=== PATIENT | female | born 1960 | race Caucasian/White ===

== ENCOUNTER 2016-07-18 14:13 | Day surgery (SDC) | payer BC ==
[~2016-07-18] VITALS: Ht 162.6 cm; Wt 79.6 kg
[~2016-07-18 14:13] MED LIST: GLIP-95 PO; HYDR-3498 PO; LISI-313 PO; MTF1000T PO; SIMV10TA6 PO
[2016-07-18] MEDS ORDERED: MELO7.5O PO (14:37)
[2016-07-18 14:48] VITALS: Ht 162.6 cm; Wt 79.6 kg
[2016-07-18 15:11] VITALS: BP 111/70; PULSE 86; RESP 16
[2016-07-18] MEDS ORDERED: LIDOCAINE 2% (SDV) 5 ML INJ ONE (15:28)
[2016-07-18] MEDS ORDERED: PROPOFOL 60 ML ONE (15:28)
--- NOTE | 2016-07-18 16:39 | GILP ---
DATE OF PROCEDURE: 07/18/2016 NAME OF PROCEDURES: 1. Colonoscopy. 2. Colostomy. 3. Flexible sigmoidoscopy through the anus. INDICATION FOR THE PROCEDURE: Ms. Sherrie Prado is a 56-year-old female patient who had accident al perforation of the colon during hysterectomy. The patient had surgery done and she had a colosto my. They reversal of colostomy was scheduled. The patient has a family history of colon cancer. She never had a screening colonoscopy, so the patient was scheduled for screening colonoscopy before e colon surgery. The procedure and possible complications are well explained to the patient. She understood and conse nted to the procedure. DESCRIPTION OF PROCEDURE: Under the influence of anesthesia, the pediatric upper endoscope was care fully inserted through the colostomy because the stoma was very tight. The scope was advanced all e way to the cecum. FINDINGS: The mucosa was normal. No colon neoplasm was identified. Then, the upper endoscope was carefully inserted into the rectum and it was advanced into the rectal pouch. The patient had residual stool in the rectal pouch, making the exam somewhat inadequate. She tolerated the procedures very well and there was no complication from the procedures. At the en d of the procedures, she was awake with stable vital signs and she was discharged home to the care o f her family. IMPRESSION: 1. Normal colonoscopy to cecum. 2. Colostomy. 3. Residual stool in the rectal pouch. PLAN: 1. May go ahead with the revision of the colostomy. 2. Next screening colonoscopy in 10 years. Dictated By: NICK READ/ТАТЬЯНА Conf#: [id number] DID#: [id number] CC: DEWAYNE TOBAR MD;*EndCC*
[2016-07-18 16:49] VITALS: BP 108/69; PULSE 74
== END 2016-07-19 12:00 | disposition home or self-care (01) ==
LOC: GIL 14:13
PROVIDERS: ATTEND Internal Medicine Gastroenterology
DX: Z12.11 Encounter for screening for malignant neoplasm of colon (principal); E11.9 Type 2 diabetes mellitus without complications; I10 Essential (primary) hypertension; E78.5 Hyperlipidemia, unspecified
CPT/HCPCS: 82962

== ENCOUNTER 2016-07-20 11:53 | Inpatient (IN) | payer BC ==
[2016-07-19 15:05] VITALS: BMI 23.8
[~2016-07-20] VITALS: Ht 164.5 cm; Wt 79.1 kg
[2016-07-20] VITALS (23 sets, daily range): BP systolic 115–159; BP diastolic 65–87; PULSE 72–96; RESP 12–19; Ht 164.5 cm; Wt 79.1 kg
[~2016-07-20 11:53] MED LIST changes: +EPHEDrine SULFATE 50 MG/5 ML SYG ONE; -HYDR-3498 PO; +MELO7.5O PO; +NALOXONE (0.4 MG/ML) INJ ONE; +ROCURONIUM 50 MG INJ ONE
[2016-07-20] MEDS ORDERED: metroNIDAZOLE 500 MG/NS (PMX) 100 ML IVPB ONE (12:30)
[2016-07-20] MEDS ORDERED: CIPROFLOXACIN 400MG/D5W 200 ML IVPB ONE (12:30)
[2016-07-20 13:32] LABS: ADD SCAN DIFF NO
[2016-07-20 13:40] LABS: BASOPHILS % 0.5 % (0.0-2.0); EOSINOPHILS # 0.1 10^3/ul (0.0-0.5); EOSINOPHILS % 2.1 % (0.0-7.0); HEMATOCRIT 41.2 % (37.0-47.0); HEMOGLOBIN 13.9 g/dl (12.0-16.0); INR 0.93; LYMPHOCYTES # 1.4 10^3/ul (0.8-2.9); LYMPHOCYTES % 33.3 % (15.0-51.0); MEAN CORPUSCULAR HGB CONC 33.7 g/dl (32.0-37.0); MEAN CORPUSCULAR VOLUME 83.1 fl (82.0-101.0); MEAN PLATELET VOLUME 9.4 fl (7.4-10.4); MONOCYTE # 0.3 10^3/ul (0.3-0.9); MONOCYTES % 5.8 % (0.0-11.0); NEUTROPHIL # 2.5 10^3/ul (1.6-7.5); NEUTROPHILS % 58.1 % (39.0-77.0); PARTIAL THROMBOPLASTIN TIME 29.7 Sec (25.0-35.0); PLATELET COUNT 173 10^3/UL (140-415); PROTIME 12.5 Sec (12.2-14.2); RED BLOOD COUNT 4.96 10^6/ul (4.20-5.40); RED CELL DISTRIBUTION WIDTH 14.6 % (11.5-14.5); WHITE BLOOD COUNT 4.3 10^3/ul (4.8-10.8)
[2016-07-20 13:43] LABS: POTASSIUM 4.1 mmol/L (3.5-5.1)
[2016-07-20 13:45] LABS: CHOL/HDL RATIO 2.9 RATIO
[2016-07-20 13:50] LABS: CALCIUM 9.9 mg/dl (8.4-10.2); CREATININE 0.75 mg/dl (0.44-1.00)
[2016-07-20] MEDS ORDERED: LIDOCAINE 100 MG SYRINGE ONE (14:09)
[2016-07-20] MEDS ORDERED: PROPOFOL 20 ML ONE (14:09)
[2016-07-20] MEDS ORDERED: DEXAMETHASONE 4 MG/ML 1 ML INJ ONE (14:09)
[2016-07-20] MEDS ORDERED: ONDANSETRON 4 MG INJ ONE (14:09)
[2016-07-20] MEDS ORDERED: GLYCOPYRROLATE 1 MG INJ ONE ×2 (14:11→17:30)
[2016-07-20] MEDS ORDERED: NEOSTIGMINE 3 MG/3 ML SYRINGE ONE ×2 (14:11→17:30)
[2016-07-20] MEDS ORDERED: EPHEDrine SULFATE 50 MG/5 ML SYG IV PRN (14:30)
[2016-07-20] MEDS ORDERED: LABETALOL HCL 20MG INJ IV PRN (14:30)
[2016-07-20] MEDS ORDERED: DIPHENHYDRAMINE 50 MG INJ IV PRN (14:30)
[2016-07-20] MEDS ORDERED: HYDROmorphONE (0.2 MG/ML) 10ML SYG IV PRN ×3 (14:30)
[2016-07-20] MEDS ORDERED: FENTAnyl 50 MCG/ML VIAL IV PRN ×2 (14:30)
[2016-07-20] MEDS ORDERED: ONDANSETRON 4 MG INJ IV PRN ×2 (14:30→20:30)
[2016-07-20] MEDS ORDERED: MIDAZOLAM 1 MG/ML 2 ML INJ IV PRN (14:30)
[2016-07-20] MEDS ORDERED: ATROPINE 1 MG/10 ML SYRINGE IV PRN (14:30)
[2016-07-20] MEDS ORDERED: OXYCODONE/ACETAMINOPHEN (5/325) TAB PO PRN ×2 (14:30)
[2016-07-20] MEDS ORDERED: morphine (1 MG/ML) 10ML SYRINGE IV PRN ×3 (14:30)
[2016-07-20] MEDS ORDERED: hydrALAzine 20 MG INJ IV PRN (14:30)
[2016-07-20] MEDS ORDERED: MEPERIDINE 25 MG INJ IV PRN (14:30)
[2016-07-20] MEDS ORDERED: LIDOCAINE 1% (STERILE-PAK) 30 ML INJ ONE (14:34)
[2016-07-20] MEDS ORDERED: BUPIVACAINE 0.5%/EPI (SDV) 30 ML INJ ONE (14:34)
[2016-07-20] MEDS ORDERED: HYDROmorphONE 2 MG/ML SYG ONE (17:31)
[2016-07-20 20:04] LABS: ADD UMIC YES; URINE BILIRUBIN (Dip) NEGATIVE (NEGATIVE); URINE BLOOD (Dip) 3+ (NEGATIVE); URINE COLOR YELLOW (YELLOW); URINE GLUCOSE (Dip) NEGATIVE (NEGATIVE); URINE KETONES (Dip) 40 (NEGATIVE); URINE LEUKOCYTE ESTERASE (Dip) NEGATIVE (NEGATIVE); URINE NITRITE (Dip) NEGATIVE (NEGATIVE); URINE TOTAL PROTEIN (Dip) NEGATIVE (NEGATIVE); URINE UROBILINOGEN (Dip) 0.2 E.U./dL (0.1-1.0)
[2016-07-20 20:20] LABS: BACTERIA,URINE RARE; SQUAMOUS EPITHELIAL CELL,UR FEW
[2016-07-20] MEDS ORDERED: HYDROmorphONE 1 MG/ML SYG IV PRN (20:30)
--- NOTE | 2016-07-20 20:58 | OPR ---
Date/Time of Note Date/Time of Note DATE: 07/20/16 TIME: 20:34 Operative Report Procedure Date: Jul 20, 2016 Preoperative Diagnosis 1. Colostomy state 2. History of colorectal perforation secondary to complicated vaginal hysterectomy 3. BMI 29 Postoperative Diagnosis 1. Colostomy state 2. History of colorectal perforation secondary to complicated vaginal hysterectomy 3. BMI 29 Operation Performed 1. Laparoscopic colostomy reversal/takedown 2. Laparoscopic splenic mobilization 3. Rigid sigmoidoscopy 4. Implantation of biologic over anastomosis to improve healing and decrease adhesions 5. Local anesthetic injection, [id number] 6. Laparoscopic bilateral transversus abdominis plane block Surgeon: DEWAYNE TOBAR MD Anesthesia: general (Plus local plus regional) Anesthesiologist: JJ LAMB MD Estimated Blood Loss: 10 - 50 ml's Specimens 1. Left anastomotic rings 2. Distal colon/colostomy edge Tubes/Drains Quarter inch Beto Complications: None Pt Condition Post Procedure: stable Disposition: PACU Indications 56-year-old female with multiple comorbidities who had a vaginal hysterectomy last year which was complicated with colorectal perforation and fistulization and pelvic abscess. She was taken to surgery for laparoscopic exploration colostomy washout and repair of the vaginal cuff. She is now here for colostomy reversal. She had colonoscopy by Dr. Ruiz without any abnormal findings. Risks include but are not limited to bleeding, infection, abscess, seroma, leak , damage to intestines or any intra-abdominal/intrapelvic structures, hernia formation, chronic pain, need for re-operations or further surgeries, CA, stroke , PE, DVT, pneumonia, organ failures, or even . Procedure Description Patient was brought into the operating room, placed supine on the operating table, SCDs were placed, right arm was tucked, all pressure points were well- padded, preoperative antibiotics administered, and after induction of anesthesia , patient was placed in the lithotomy. More was inserted. Patient was then prepped and draped in usual sterile fashion, and timeout was performed. Incision was made in the right upper quadrant, and using an Optiview port and 5 mm 0 scope abdomen was safely entered and insufflated to 15 mmHg with CO2. Laparoscopy was performed and no injuries were identified. There was adhesions of the small bowel to colostomy left lower quadrant. There is some scar adhesions to the abdominal wall from the small bowel. Under direct visualization another 5 mm port was placed in the right lower quadrant a 12 mm port was placed in the right lower lateral quadrant. Patient was placed in Trendelenburg and left side up. Pelvis was investigated. There was some small bowel adhesions to the pelvic wall. Those were taken down sharply without any injury. The adhesions of small bowel to the colostomy were also taken down. Rigid sigmoidoscopy was performed and the rectal stump was found to be short. There was few stool hard balls and there which were removed manually. The vaginal cuff and the bladder were easily off of the rectal stump. The rectal stump did not feel thickened. A colostomy edge was cut away from the skin using electrocautery and with gentle dissection the distal colon was from the subcutaneous tissue and then the fascia and peritoneum circumferentially preserving the entire colon. Hemostasis was obtained. The 3 cm distal end of the colon was thickened and not too healthy for stapling. At this point automatic pursestring suture device was used on the healthy distal colon and then unhealthy distal colon was transected and sent to pathology. EEA 29 anvil was placed into the distal colon and secured with the previously placed pursestring suture. Care was taken to put back the EEA anvil and the distal colon back into the abdomen under direct visualization. Lance GelPort was applied at the site to preserve insufflation. At this point there are proximal colon was not sufficiently reaching the rectal stump in the pelvis. Decision was made to proceed with splenic mobilization. Using sharp dissection and energy device I was able to mobilize the proximal descending colon further from the abdominal wall and the spleen. The omentum was taken off the splenic flexure and the splenic flexure was further mobilized inferiorly. After full mobilization of the splenic flexure we were able to obtain sufficient length for the anastomosis without any tension. EEA stapler was placed through the rectum into the rectal stump under direct visualization. The needle was opened through the rectal stump and the anvil was attached to the needle and full circular stapled anastomosis was created. After removal of the EEA full doughnuts 2 were identified. Proximal colon was clamped and using a rigid sigmoidoscope and air was insufflated into the rectum with distention of the anastomotic site under saline in the pelvis without any air bubbles leaking. Rigid sigmoidoscopy was performed up to 15 cm with healthy stapled anastomosis without any active bleeding. Fluid was suctioned out. To reinforce the stapled anastomosis, improve healing, and decrease adhesions, 10 x 15 cm 3 layer ACell, xenograft biologic tissue, was implanted on top of the anastomosis in the pelvis. Small bowel was ran from terminal ileum to augment of Treitz without any twisting or further scarring. The bowel was laid flat in the abdomen and pelvis. 12 m port site fascia was closed with Endo Close and 0 Vicryl in a figure-of- eight manner. There was complete hemostasis. Ports and CO2 were removed under direct visualization. Wounds were thoroughly irrigated and skin was closed with 4-0 Monocryl subcuticular fashion. Dermabond was applied. The colostomy site wound was closed in multiple layers. Initially the peritoneum was closed with 2-0 Vicryl in a running fashion. Fascial defect was closed with interrupted #1 Vicryls in a agyhma-ne-xoxjh manner. Subcutaneous tissue was closed in multiple layers with interrupted 2-0 Vicryl suture. There was irrigation with saline and Betadine between each closing layer. Quarter inch Beto drain was placed above the fascia and below the subcutaneous tissue and the edges secured to the skin surface using 2-0 nylon. Skin was stapled loosely and then 4 x 4 and tape were applied to the surface of this wound. Abdomen was reinsufflated with CO2. Partial mobilization of the splenic flexure was performed to allow sufficient colon to reach into the pelvis. This was done by mobilizing the left colon off of the spleen. Jygc-iu-mheb staple anastomosis was created between the left colon and the upper rectum. This was done by placing 2-0 silk sutures and interrupted posteriorly followed by enterotomies in both segments followed by 60 blue load staple anastomosis that was created. The open end was closed with another 60 blue load stapler. There was enough anastomosis to allow easy passage of stool. The suture line was reinforced with 2-0 silk Lembert sutures in a running fashion. The mesenteric defect was large enough and decision was made not to close it. There was enough fat around the colon to cover this anastomosis for reinforcement. The omentum was eventually pulled over the anastomosis to further secure it as well. The colon was not twisted. There was complete hemostasis. All counts were correct and the end of the operation 2. Patient was extubated and transferred to recovery room in stable condition. Copies To: CC: ELLIS MCNEILL MD; NICK RUIZ MD; TRAVIS SCHNEIDER (HIEU) DEWAYNE TRAN MD, MD 16, 2017 20:55
[2016-07-20] MEDS ORDERED: D5W-0.45 NACL + KCL 20 MEQ 1,000 ML IV SCH (21:00)
[2016-07-20] MEDS ORDERED: DEXTROSE 50% 50 ML SYRINGE IV PRN ×2 (21:00)
[2016-07-20] MEDS ORDERED: GLUCOSE GEL 15 GRAM TUBE BUCCAL PRN (21:00)
[2016-07-20] MEDS ORDERED: GLUCOSE GEL 15 GRAM TUBE PO PRN ×2 (21:00)
[2016-07-20] MEDS ORDERED: GLUCAGON 1 MG INJ IM PRN (21:00)
[2016-07-20] MEDS: CIPROFLOXACIN 400MG/D5W 200 ML IVPB SCH (21:26)
[2016-07-20] MEDS: metroNIDAZOLE 500 MG/NS (PMX) 100 ML IVPB SCH (21:27)
[2016-07-20] MEDS: INSULIN ASPART [NOVOLOG] 3 ML PEN SC SCH (21:30)
[2016-07-20] MEDS: HYDROCODONE/APAP (5/325) TAB PO PRN (23:41)
[2016-07-21] MEDS: ACCU-CHEK XX SCH (02:00)
[2016-07-21 04:56] LABS: ADD SCAN DIFF NO
[2016-07-21 05:01] LABS: BASOPHILS % 0.1 % (0.0-2.0); HEMATOCRIT 37.1 % (37.0-47.0); HEMOGLOBIN 12.2 g/dl (12.0-16.0); LYMPHOCYTES # 0.7 10^3/ul (0.8-2.9); LYMPHOCYTES % 10.4 % (15.0-51.0); MEAN CORPUSCULAR HEMOGLOBIN 27.4 pg (29.0-33.0); MEAN CORPUSCULAR HGB CONC 32.9 g/dl (32.0-37.0); MEAN CORPUSCULAR VOLUME 83.2 fl (82.0-101.0); MEAN PLATELET VOLUME 9.9 fl (7.4-10.4); MONOCYTE # 0.4 10^3/ul (0.3-0.9); MONOCYTES % 5.3 % (0.0-11.0); NEUTROPHIL # 5.7 10^3/ul (1.6-7.5); NEUTROPHILS % 84.1 % (39.0-77.0); PLATELET COUNT 124 10^3/UL (140-415); RED BLOOD COUNT 4.46 10^6/ul (4.20-5.40); WHITE BLOOD COUNT 6.7 10^3/ul (4.8-10.8)
[2016-07-21 05:15] LABS: ALBUMIN 3.3 g/dl (3.3-4.9)
[2016-07-21 05:16] LABS: POTASSIUM 5.2 mmol/L (3.5-5.1)
[2016-07-21 05:18] LABS: ALBUMIN/GLOBULIN RATIO 1.5; BILIRUBIN,INDIRECT 0.4 mg/dl (0-1.1); BILIRUBIN,TOTAL 0.4 mg/dl (0.2-1.3); CREATININE 0.76 mg/dl (0.44-1.00); TOTAL PROTEIN 5.5 g/dl (6.1-8.1)
[2016-07-21 05:19] LABS: CALCIUM 8.7 mg/dl (8.4-10.2)
[2016-07-21] MEDS: PANTOPRAZOLE 40 MG INJ IV SCH (05:29)
[2016-07-21] MEDS: metroNIDAZOLE 500 MG/NS (PMX) 100 ML IVPB SCH ×2 (05:29→13:06)
[2016-07-21] MEDS: ENOXAPARIN 40 MG/0.4 ML SYG SC SCH (06:40)
[2016-07-21] MEDS: HYDROCODONE/APAP (5/325) TAB PO PRN ×3 (06:41→20:37)
[2016-07-21 08:27] VITALS: BP 121/65; RESP 18
[2016-07-21] MEDS: CIPROFLOXACIN 400MG/D5W 200 ML IVPB SCH (08:50)
[2016-07-21] MEDS: INSULIN ASPART [NOVOLOG] 3 ML PEN SC SCH ×3 (08:55→20:39)
[2016-07-21] MEDS: SOD CHLORIDE 0.45% 1,000 ML IV SCH ×2 (10:24→23:42)
[2016-07-21 12:31] LABS: ADD UMIC YES; URINE BILIRUBIN (Dip) NEGATIVE (NEGATIVE); URINE BLOOD (Dip) 3+ (NEGATIVE); URINE COLOR LT. YELLOW (YELLOW); URINE KETONES (Dip) NEGATIVE (NEGATIVE); URINE LEUKOCYTE ESTERASE (Dip) NEGATIVE (NEGATIVE); URINE NITRITE (Dip) NEGATIVE (NEGATIVE); URINE TOTAL PROTEIN (Dip) NEGATIVE (NEGATIVE); URINE UROBILINOGEN (Dip) 0.2 E.U./dL (0.1-1.0)
[2016-07-21 12:54] LABS: BACTERIA,URINE FEW
[2016-07-21 14:00] VITALS: BP 128/72; PULSE 78; RESP 20
--- NOTE | 2016-07-21 14:05 | HP ---
DATE OF ADMISSION: 07/20/2016 HISTORY OF PRESENT ILLNESS: The patient is a 56-year-old very pleasant female known to me from prev ious admission. The patient with history of diabetes, hypertension, hyperlipidemia. The patient hill d a vaginal hysterectomy last year with complicated colorectal perforation and fistulization and pel israel abscess. The patient underwent laparoscopic exploration of colostomy, washout and repair of the vaginal cuff. The patient also with a history of sepsis and completed treatment with antibiotics f rom previous admission. The patient was followed by Dr. Bartlett, general surgery, and patient was b rought to the hospital and underwent colostomy reversal. The patient also underwent colonoscopy wit h Dr. Bear without any abnormal findings. Postoperatively, the patient experienced some signific ant pain and was admitted for further evaluation and management. The patient also had some elevated sugars. PAST MEDICAL HISTORY: As per HPI. PAST SURGICAL HISTORY: The patient is status post many years ago, status post laparoscopi c hysterectomy and status post laparoscopic exploration, colostomy with washout and repair or vagina l cuff. FAMILY HISTORY: Noncontributory. SOCIAL HISTORY: The patient lives at home with her family. The patient denies any alcohol use, den ies any illicit drug use, denies any tobacco use. ALLERGIES: THE PATIENT IS ALLERGIC TO: 1. ERYTHROMYCIN. 2. BACTRIM. 3. . HOME MEDICATIONS: Include: 1. Glipizide. 2. Metformin. 3. Lisinopril. 4. Meloxicam. 5. Simvastatin. REVIEW OF SYSTEMS: A 12-point review of systems is negative unless what mentioned in the HPI. PHYSICAL ASSESSMENT: GENERAL: Well-developed, well-nourished female who is awake, alert. VITAL SIGNS: Temperature is 98.2, pulse is 71, blood pressure 121/65, respiratory rate 18, oxygen s aturation 99% on 2 liters nasal cannula. HEENT: Head is atraumatic, normocephalic. Pupils equal, round, reactive to light and accommodation . Oral mucosa is pink and moist. NECK: Supple, no cervical lymphadenopathy, no thyromegaly. CHEST: Lungs clear bilaterally. There is no rhonchi, wheezes, rales noted. CARDIOVASCULAR: Normal S1, S2. No murmurs, gallops, clicks, rubs noted. ABDOMEN: Status post surgery. Bowel sounds hypoactive. EXTREMITIES: There is no edema, clubbing, cyanosis. Pulses equal bilaterally, 2+. SKIN: There is no rash, petechiae noted. NEUROLOGIC: The patient is awake, alert and oriented x4. No focal deficits noted. Motor strength 5/5 in all extremities. LABORATORY DATA: On admission, CBC: White blood cells 4.3, hemoglobin 13.9, hematocrit 41.2, plate lets 173. Chemistry: Sodium is 142, potassium 4.1, chloride 103, carbon dioxide 24, anion gap 19, BUN is 18, creatinine 0.75, glucose 98, calcium 9.9. ASSESSMENT AND PLAN: 1. Status post laparoscopic colostomy reversal. 2. Diabetes mellitus type 2. We are going to continue patient's home medications. Continue NovoLo g per algorithm sliding scale. 3. Hypertension. Continue lisinopril. Continue hydralazine p.r.n. for systolic blood pressure abo ve 170. 4. Hyperlipidemia. We will resume patient's statin when patient is able to take p.o. 5. Status post laparoscopic hysterectomy, and status post laparoscopic anterior resection, colostom y and drainage of abscess and repair of pelvic floor and vaginal cuff in 03/2016. We will advance d iet per surgical recommendations. Continue incentive spirometer q.1 hour while patient is awake. C ontinue postoperative antibiotics. Continue [place] and Dilaudid p.r.n. for pain and Zofran p.r.n. fo r nausea. Continue Lovenox for deep venous thrombosis prophylaxis and Protonix for peptic ulcer dis ease prophylaxis. Further recommendations based on clinical course. Plan of care discussed with Dr. Mcneill. Dictated By: MANISHA SAGASTUME TYPESETTER PERFORATOR OPERATOR for ELLIS MCNEILL MD SR/NTS Conf#: [id number] DID#: [id number]
[2016-07-21] MEDS: metFORMIN 500 MG TAB PO SCH (18:00)
[2016-07-21] MEDS: glipiZIDE 10 MG TAB PO SCH (18:00)
[2016-07-21 19:00] VITALS: BP 129/63; RESP 18
--- NOTE | 2016-07-21 19:46 | PN ---
Date/Time of Note Date/Time of Note DATE: 07/21/16 TIME: 19:42 Assessment/Plan Lines/Catheters IV Catheter Type (from Nrs): Peripheral IV More in Place (from Nrs): Yes Assessment/Plan Chief Complaint/Hosp Course 1. s/p colostomy reversal 07/20/16. Paralytic ileus. -Ambulate -Chew gum -On clear liquids. 2. BMI 29 -Encourage eventual nutritional optimization -Encourage exercise 3. Hypertension -Diet and medication optimization -Eventual weight optimization encouraged 4. Hyperlipidemia -Diet and medication optimization -Eventual weight optimization encouraged 5. Diabetes mellitus -Diet and medication optimization -Eventual weight optimization encouraged 6. Hyperkalemia -Correct per primary please Thank you, Problems: Subjective 24 Hr Interval Summary No flatus or BM. No nausea vomiting. Minimal pain. No chest pain. No shortness of breath. No visual neurologic changes. No dysuria. After More came out patient making good amount of urine. No cough. She is sneezing greenish discharge. Ambulatory. Exam/Review of Systems Vital Signs Vitals Vital Signs Date Time Temp Pulse Resp B/P Pulse Ox O2 Delivery O2 Flow Rate FiO2 07/21/16 14:00 98.4 78 20 128/72 07/21/16 08:27 99 07/20/16 22:45 Nasal Cannula 2.0 Intake and Output 07/20/16 07/20/16 07/21/16 15:00 23:00 07:00 Intake Total 1500 ml 240 ml Output Total 50 ml 1100 ml Balance 1450 ml -860 ml Exam Constitutional: alert, obese, oriented, No distress Psych: nl mood/affect, No anxiety Head: atraumatic, normocephalic Eyes: EOMI, PERRL, nl conjunctiva, No icteric ENMT: mucosa pink and moist, nl external ears & nose, nl lips & teeth Neck: non-tender, supple, No jvd Respiratory: normal air movement, No congested cough, No labored breathing Cardiovascular: regular rate and rhythm, No edema Gastrointestinal: other (Colostomy site with some nonblanching erythema. Kareen and drain intact. Minimal discharge. No odor.), soft, tender (Minimal) , No rebound or guarding Musculoskeletal: nl extremities to inspection, nl gait and stance, No joint tenderness Extremities: normal pulses, No calf tenderness, No cyanosis Neurological: nl mental status, nl speech, nl strength Skin: nl turgor, rash or lesions, No diaphoresis (Abdominal colostomy site skin changes as above) Lymph: nl lymph nodes Results Result Diagram: 07/21/160 07/21/160 DEWAYNE TOBAR MD Jul 21, 2016 19:46
[2016-07-21] MEDS: ATORVASTATIN 10 MG TAB PO SCH (20:37)
[2016-07-22] MEDS: ACCU-CHEK XX SCH (01:07)
[2016-07-22] MEDS: HYDROCODONE/APAP (5/325) TAB PO PRN ×3 (03:25→22:50)
[2016-07-22] MEDS: PANTOPRAZOLE 40 MG INJ IV SCH (06:41)
[2016-07-22] MEDS: ENOXAPARIN 40 MG/0.4 ML SYG SC SCH (06:44)
[2016-07-22] MEDS: INSULIN ASPART [NOVOLOG] 3 ML PEN SC SCH ×4 (07:50→20:18)
[2016-07-22 08:15] VITALS: BP 124/70; RESP 18
[2016-07-22] MEDS: glipiZIDE 10 MG TAB PO SCH ×2 (08:52→17:55)
[2016-07-22] MEDS: metFORMIN 500 MG TAB PO SCH ×2 (08:52→17:55)
[2016-07-22] MEDS: LISINOPRIL 5 MG TAB PO SCH (08:53)
--- NOTE | 2016-07-22 11:55 | PN ---
Date/Time of Note Date/Time of Note DATE: 07/22/16 TIME: 11:54 Assessment/Plan VTE Prophylaxis VTE Prophylaxis Intervention: other Lines/Catheters IV Catheter Type (from Nrsg): Peripheral IV Urinary Cath still in place: Yes Reason Cath still needed: skin wounds contaminated by urine Assessment/Plan Chief Complaint/Hosp Course 1. Status post laparoscopic colostomy reversal. 2. Diabetes mellitus type 2. We are going to continue patient's home medications. Continue NovoLog per algorithm sliding scale. 3. Hypertension. Continue lisinopril. Continue hydralazine p.r.n. for systolic blood pressure above 170. 4. Hyperlipidemia. We will resume patient's statin when patient is able to take p.o. 5. Status post laparoscopic hysterectomy, and status post laparoscopic anterior resection, colostomy and drainage of abscess and repair of pelvic floor and vaginal cuff in 03/2016. We will advance diet per surgical recommendations. Continue incentive spirometer q.1 hour while patient is awake. Continue postoperative antibiotics. Continue [place] and Dilaudid p.r.n. for pain and Zofran p.r.n. for nausea. Continue Lovenox for deep venous thrombosis prophylaxis and Protonix for peptic ulcer disease prophylaxis. Problems: Subjective 24 Hr Interval Summary Free Text/Dictation Patient resting, has no complaints Exam/Review of Systems Vital Signs Vitals Vital Signs Date Time Temp Pulse Resp B/P Pulse Ox O2 Delivery O2 Flow Rate FiO2 07/22/16 08:15 98.3 82 18 124/70 96 07/20/16 22:45 Nasal Cannula 2.0 Intake and Output 07/21/16 07/21/16 07/22/16 15:00 23:00 07:00 Intake Total 300 ml 2420 ml 1555 ml Output Total 1000 ml Balance 300 ml 2420 ml 555 ml Exam Constitutional: well developed Head: atraumatic, normocephalic Neck: supple Cardiovascular: regular rate and rhythm Gastrointestinal: non-tender, soft Extremities: normal pulses Results Result Diagram: 07/21/16 0430 07/21/16 0430 Results 24 hrs Laboratory Tests Test 07/21/16 11:59 07/21/16 17:12 07/21/16 20:32 07/22/16 08:10 Bedside Glucose 221 H 118 98 78 Medications Medications Current Medications Ondansetron HCl (Zofran Inj) 4 mg Q6H PRN IV NAUSEA AND/OR VOMITING Last administered on 07/20/16 23:43; Admin Dose 4 MG; Start 07/20/16 at 20:30 Pantoprazole (Protonix Iv) 40 mg DAILY@06 IV Last administered on 07/22/16 06: 41; Admin Dose 40 MG; Start 07/21/16 at 06:00 Enoxaparin Sodium (Lovenox) 40 mg DAILY@07 SC Last administered on 07/22/16 06 :44; Admin Dose 40 MG; Start 07/21/16 at 07:00 Acetaminophen/ Hydrocodone Bitart ([place] (5/325)) 2 tab Q4H PRN PO Pain 6-10; Start 07/20/16 at 20:30 Acetaminophen/ Hydrocodone Bitart ([place] (5/325)) 1 tab Q4H PRN PO Pain 1-5 Last administered on 07/22/16 03:25; Admin Dose 1 TAB; Start 07/20/16 at 20:30 Hydromorphone HCl (Dilaudid) 0.5 mg Q2H PRN IV Breakthrough PAIN; Start at 20:30 Diagnostic Test (Pha) (Accucheck) 1 ea 02 XX Last administered on 07/21/16 02: 00; Admin Dose 1 EA; Start 07/21/16 at 02:00 Miscellaneous Information 1 ea NOTE XX ; Start 07/20/16 at 21:00 Glucose (Glutose) 15 gm Q15M PRN PO DECREASED GLUCOSE; Start 07/20/16 at 21:00 Glucose (Glutose) 22.5 gm Q15M PRN PO DECREASED GLUCOSE; Start 07/20/16 at 21: 00 Dextrose (D50w Syringe) 25 ml Q15M PRN IV DECREASED GLUCOSE; Start 07/20/16 at 21:00 Dextrose (D50w Syringe) 50 ml Q15M PRN IV DECREASED GLUCOSE; Start 07/20/16 at 21:00 Glucagon (Glucagen) 1 mg Q15M PRN IM DECREASED GLUCOSE; Start 07/20/16 at 21:00 Glucose 15 gm 15 gm Q15M PRN BUCCAL DECREASED GLUCOSE; Start 07/20/16 at 21:00 Sodium Chloride (1/2 NS) 1,000 ml @ 75 mls/hr [id number] IV Last administered on 07/21/16 23:42; Admin Dose 75 MLS/HR; Start 07/21/16 at 10:00 Lisinopril (Zestril) 5 mg DAILY PO Last administered on 07/22/16 08:53; Admin Dose 5 MG; Start 07/22/16 at 09:00 Atorvastatin Calcium (Lipitor) 10 mg DAILY@21 PO Last administered on 20:37; Admin Dose 10 MG; Start 07/21/16 at 21:00 SHAILESH JUAREZ Jul 22, 2016 11:55
[2016-07-22] MEDS: SOD CHLORIDE 0.45% 1,000 ML IV SCH (13:06)
--- NOTE | 2016-07-22 17:42 | PN ---
Date/Time of Note Date/Time of Note DATE: 07/22/16 TIME: 17:40 Assessment/Plan Lines/Catheters IV Catheter Type (from Nrs): Peripheral IV More in Place (from Nrs): Yes Assessment/Plan Chief Complaint/Hosp Course 1. s/p colostomy reversal 07/20/16. Paralytic ileus. -OOB/Ambulate -Chew gum -On clear liquids. 2. BMI 29 -Encourage eventual nutritional optimization -Encourage exercise 3. Hypertension -Diet and medication optimization -Eventual weight optimization encouraged 4. Hyperlipidemia -Diet and medication optimization -Eventual weight optimization encouraged 5. Diabetes mellitus -Diet and medication optimization -Eventual weight optimization encouraged 6. Hyperkalemia -Correct per primary please 7. Hypoglycemia -?withhold diabetic med Thank you, Problems: Subjective 24 Hr Interval Summary No flatus or BM. No nausea vomiting. Minimal pain. No chest pain. No shortness of breath. No visual neurologic changes. No dysuria. No cough. Ambulatory. Exam/Review of Systems Vital Signs Vitals Vital Signs Date Time Temp Pulse Resp B/P Pulse Ox O2 Delivery O2 Flow Rate FiO2 07/22/16 08:15 98.3 82 18 124/70 96 07/20/16 22:45 Nasal Cannula 2.0 Intake and Output 07/21/16 07/21/16 07/22/16 15:00 23:00 07:00 Intake Total 300 ml 2420 ml 1555 ml Output Total 1000 ml Balance 300 ml 2420 ml 555 ml Exam Free Text/Dictation Constitutional: alert, obese, oriented, No distress Psych: nl mood/affect, No anxiety Head: atraumatic, normocephalic Eyes: EOMI, PERRL, nl conjunctiva, No icteric ENMT: mucosa pink and moist, nl external ears & nose, nl lips & teeth Neck: non-tender, supple, No jvd Respiratory: normal air movement, No congested cough, No labored breathing Cardiovascular: regular rate and rhythm, No edema Gastrointestinal: other (Colostomy site with some nonblanching erythema. Kareen and drain intact. Minimal discharge. No odor.), soft, tender (Minimal) , No rebound or guarding Musculoskeletal: nl extremities to inspection, nl gait and stance, No joint tenderness Extremities: normal pulses, No calf tenderness, No cyanosis Neurological: nl mental status, nl speech, nl strength Skin: nl turgor, rash or lesions, No diaphoresis (Abdominal colostomy site skin changes as above) Lymph: nl lymph nodes Results Result Diagram: 07/21/160 07/21/16 0430 DEWAYNE TOBAR MD Jul 22, 2016 17:42
[2016-07-22 18:19] VITALS: BP 119/72; PULSE 88; RESP 20
[2016-07-22 19:47] VITALS: BP 125/73; PULSE 88; RESP 18
[2016-07-22] MEDS: ATORVASTATIN 10 MG TAB PO SCH (20:17)
[2016-07-23] MEDS: ACCU-CHEK XX SCH (01:53)
[2016-07-23] MEDS: SOD CHLORIDE 0.45% 1,000 ML IV SCH ×2 (02:12→16:21)
[2016-07-23] MEDS: PANTOPRAZOLE 40 MG INJ IV SCH (06:15)
[2016-07-23] MEDS: ENOXAPARIN 40 MG/0.4 ML SYG SC SCH (06:19)
[2016-07-23] MEDS: INSULIN ASPART [NOVOLOG] 3 ML PEN SC SCH ×4 (07:50→21:00)
[2016-07-23] MEDS: metFORMIN 500 MG TAB PO SCH ×2 (08:47→17:45)
[2016-07-23] MEDS: LISINOPRIL 5 MG TAB PO SCH (08:47)
[2016-07-23] MEDS: glipiZIDE 10 MG TAB PO SCH (08:48)
[2016-07-23 08:52] VITALS: BP 125/70; RESP 18
--- NOTE | 2016-07-23 12:02 | PN ---
Date/Time of Note Date/Time of Note DATE: 07/23/16 TIME: 12:01 Assessment/Plan VTE Prophylaxis VTE Prophylaxis Intervention: other Lines/Catheters IV Catheter Type (from Nrsg): Peripheral IV Urinary Cath still in place: Yes Reason Cath still needed: skin wounds contaminated by urine Assessment/Plan Chief Complaint/Hosp Course 1. Status post laparoscopic colostomy reversal. 2. Diabetes mellitus type 2. We are going to continue patient's home medications. Continue NovoLog per algorithm sliding scale. 3. Hypertension. Continue lisinopril. Continue hydralazine p.r.n. for systolic blood pressure above 170. 4. Hyperlipidemia. We will resume patient's statin when patient is able to take p.o. 5. Status post laparoscopic hysterectomy, and status post laparoscopic anterior resection, colostomy and drainage of abscess and repair of pelvic floor and vaginal cuff in 03/2016. We will advance diet per surgical recommendations. Continue incentive spirometer q.1 hour while patient is awake. Continue postoperative antibiotics. Continue [place] and Dilaudid p.r.n. for pain and Zofran p.r.n. for nausea. Continue Lovenox for deep venous thrombosis prophylaxis and Protonix for peptic ulcer disease prophylaxis. Problems: Subjective 24 Hr Interval Summary Free Text/Dictation Patient has some abdominal pain but controlled Exam/Review of Systems Vital Signs Vitals Vital Signs Date Time Temp Pulse Resp B/P Pulse Ox O2 Delivery O2 Flow Rate FiO2 07/23/16 08:52 97.6 18 18 125/70 96 07/22/16 19:47 Room Air 07/20/16 22:45 2.0 Intake and Output 07/22/16 07/22/16 07/23/16 15:00 23:00 07:00 Intake Total 2200 ml 1400 ml Output Total 1400 ml 1200 ml Balance 800 ml 200 ml Exam Constitutional: well developed Head: atraumatic, normocephalic Neck: supple Respiratory: clear to auscultation Cardiovascular: regular rate and rhythm Gastrointestinal: non-tender, soft Results Result Diagram: 07/21/16 8210 07/22/16 1997 Results 24 hrs Laboratory Tests Test 07/22/16 12:28 07/22/16 17:40 07/22/16 17:43 07/22/16 17:55 Bedside Glucose 80 45 *L 42 *L Glucose Level 56 #L Test 07/22/16 18:48 07/22/16 20:15 07/23/16 07:51 07/23/16 11:58 Bedside Glucose 71 101 108 77 Medications Medications Current Medications Ondansetron HCl (Zofran Inj) 4 mg Q6H PRN IV NAUSEA AND/OR VOMITING Last administered on 07/20/16 23:43; Admin Dose 4 MG; Start 07/20/16 at 20:30 Pantoprazole (Protonix Iv) 40 mg DAILY@06 IV Last administered on 07/23/16 06: 15; Admin Dose 40 MG; Start 07/21/16 at 06:00 Enoxaparin Sodium (Lovenox) 40 mg DAILY@07 SC Last administered on 07/23/16 06 :19; Admin Dose 40 MG; Start 07/21/16 at 07:00 Acetaminophen/ Hydrocodone Bitart ([place] (5/325)) 2 tab Q4H PRN PO Pain 6-10 Last administered on 07/22/16 22:50; Admin Dose 2 TAB; Start 07/20/16 at 20:30 Acetaminophen/ Hydrocodone Bitart ([place] (5/325)) 1 tab Q4H PRN PO Pain 1-5 Last administered on 07/22/16 14:58; Admin Dose 1 TAB; Start 07/20/16 at 20:30 Hydromorphone HCl (Dilaudid) 0.5 mg Q2H PRN IV Breakthrough PAIN; Start at 20:30 Diagnostic Test (Pha) (Accucheck) 1 ea 02 XX Last administered on 07/21/16 02: 00; Admin Dose 1 EA; Start 07/21/16 at 02:00 Miscellaneous Information 1 ea NOTE XX ; Start 07/20/16 at 21:00 Glucose (Glutose) 15 gm Q15M PRN PO DECREASED GLUCOSE; Start 07/20/16 at 21:00 Glucose (Glutose) 22.5 gm Q15M PRN PO DECREASED GLUCOSE; Start 07/20/16 at 21: 00 Dextrose (D50w Syringe) 25 ml Q15M PRN IV DECREASED GLUCOSE; Start 07/20/16 at 21:00 Dextrose (D50w Syringe) 50 ml Q15M PRN IV DECREASED GLUCOSE; Start 07/20/16 at 21:00 Glucagon (Glucagen) 1 mg Q15M PRN IM DECREASED GLUCOSE; Start 07/20/16 at 21:00 Glucose 15 gm 15 gm Q15M PRN BUCCAL DECREASED GLUCOSE; Start 07/20/16 at 21:00 Sodium Chloride (1/2 NS) 1,000 ml @ 75 mls/hr [id number] IV Last administered on 07/23/16 02:12; Admin Dose 75 MLS/HR; Start 07/21/16 at 10:00 Lisinopril (Zestril) 5 mg DAILY PO Last administered on 07/23/16 08:47; Admin Dose 5 MG; Start 07/22/16 at 09:00 Atorvastatin Calcium (Lipitor) 10 mg DAILY@21 PO Last administered on 20:17; Admin Dose 10 MG; Start 07/21/16 at 21:00 SHAILESH JUAREZ Jul 23, 2016 12:02
[2016-07-23 19:17] VITALS: BP 146/78; RESP 18
[2016-07-23] MEDS: ATORVASTATIN 10 MG TAB PO SCH (20:44)
--- NOTE | 2016-07-23 21:00 | PN ---
Date/Time of Note Date/Time of Note DATE: 07/23/16 TIME: 20:55 Assessment/Plan Lines/Catheters IV Catheter Type (from Nrs): Peripheral IV More in Place (from Nrs): Yes Assessment/Plan Chief Complaint/Hosp Course 1. s/p colostomy reversal 07/20/16. Paralytic ileus. Improving -OOB/Ambulate -Chew gum -Advance diet as tolerated 2. BMI 29 -Encourage eventual nutritional optimization -Encourage exercise 3. Hypertension -Diet and medication optimization -Eventual weight optimization encouraged 4. Hyperlipidemia -Diet and medication optimization -Eventual weight optimization encouraged 5. Diabetes mellitus -Diet and medication optimization -Eventual weight optimization encouraged 6. Hyperkalemia -Correct per primary please 7. Hypoglycemia resolved 8. Thrombocytopenia -monitor Thank you, Problems: Subjective 24 Hr Interval Summary Flatus but no BM. No nausea vomiting. Minimal pain. No chest pain. No shortness of breath. No visual neurologic changes. No dysuria. No cough. Ambulatory. Exam/Review of Systems Vital Signs Vitals Vital Signs Date Time Temp Pulse Resp B/P Pulse Ox O2 Delivery O2 Flow Rate FiO2 07/23/16 19:17 98.9 84 18 146/78 98 07/22/16 19:47 Room Air 07/20/16 22:45 2.0 Intake and Output 07/22/16 07/22/16 07/23/16 15:00 23:00 07:00 Intake Total 2200 ml 1400 ml Output Total 1400 ml 1200 ml Balance 800 ml 200 ml Exam Free Text/Dictation Constitutional: alert, obese, oriented, No distress Psych: nl mood/affect, No anxiety Head: atraumatic, normocephalic Eyes: EOMI, PERRL, nl conjunctiva, No icteric ENMT: mucosa pink and moist, nl external ears & nose, nl lips & teeth Neck: non-tender, supple, No jvd Respiratory: normal air movement, No congested cough, No labored breathing Cardiovascular: regular rate and rhythm, No edema Gastrointestinal: other (Colostomy site with improved nonblanching erythema. Kareen and drain intact. Minimal discharge. No odor.), soft, tender (Minimal) , No rebound or guarding Musculoskeletal: nl extremities to inspection, nl gait and stance, No joint tenderness Extremities: normal pulses, No calf tenderness, No cyanosis Neurological: nl mental status, nl speech, nl strength Skin: nl turgor, rash or lesions, No diaphoresis (Abdominal colostomy site skin changes as above) Lymph: nl lymph nodes Results Result Diagram: 07/21/16 0430 07/22/16 1755 DEWAYNE TOBAR MD Jul 23, 2016 20:59
[2016-07-23] MEDS: HYDROCODONE/APAP (5/325) TAB PO PRN (22:52)
[2016-07-24] MEDS: ACCU-CHEK XX SCH (02:00)
[2016-07-24 05:06] LABS: ADD SCAN DIFF NO
[2016-07-24 05:17] LABS: BASOPHILS % 0.3 % (0.0-2.0); EOSINOPHILS # 0.3 10^3/ul (0.0-0.5); EOSINOPHILS % 7.1 % (0.0-7.0); HEMATOCRIT 33.4 % (37.0-47.0); LYMPHOCYTES # 1.5 10^3/ul (0.8-2.9); LYMPHOCYTES % 40.4 % (15.0-51.0); MEAN CORPUSCULAR HEMOGLOBIN 27.7 pg (29.0-33.0); MEAN CORPUSCULAR HGB CONC 32.9 g/dl (32.0-37.0); MEAN CORPUSCULAR VOLUME 84.1 fl (82.0-101.0); MEAN PLATELET VOLUME 9.6 fl (7.4-10.4); MONOCYTE # 0.2 10^3/ul (0.3-0.9); MONOCYTES % 6.3 % (0.0-11.0); NEUTROPHIL # 1.7 10^3/ul (1.6-7.5); NEUTROPHILS % 45.9 % (39.0-77.0); PLATELET COUNT 145 10^3/UL (140-415); RED BLOOD COUNT 3.97 10^6/ul (4.20-5.40); RED CELL DISTRIBUTION WIDTH 14.5 % (11.5-14.5); WHITE BLOOD COUNT 3.6 10^3/ul (4.8-10.8)
[2016-07-24 05:42] LABS: ALBUMIN 3.1 g/dl (3.3-4.9)
[2016-07-24 05:43] LABS: POTASSIUM 3.5 mmol/L (3.5-5.1)
[2016-07-24 05:45] LABS: ALBUMIN/GLOBULIN RATIO 1.29; BILIRUBIN,INDIRECT 0.5 mg/dl (0-1.1); BILIRUBIN,TOTAL 0.5 mg/dl (0.2-1.3); CREATININE 0.73 mg/dl (0.44-1.00); TOTAL PROTEIN 5.5 g/dl (6.1-8.1)
[2016-07-24 05:46] LABS: CALCIUM 8.6 mg/dl (8.4-10.2)
[2016-07-24] MEDS: SOD CHLORIDE 0.45% 1,000 ML IV SCH ×2 (06:04→18:00)
[2016-07-24] MEDS: PANTOPRAZOLE 40 MG INJ IV SCH (06:05)
[2016-07-24] MEDS: ENOXAPARIN 40 MG/0.4 ML SYG SC SCH (06:06)
[2016-07-24] MEDS: INSULIN ASPART [NOVOLOG] 3 ML PEN SC SCH ×3 (07:50→18:21)
[2016-07-24 08:35] VITALS: BP 120/62; RESP 18
[2016-07-24] MEDS: LISINOPRIL 5 MG TAB PO SCH (09:26)
[2016-07-24] MEDS: metFORMIN 500 MG TAB PO SCH ×2 (09:26→18:19)
--- NOTE | 2016-07-24 10:57 | PN ---
Date/Time of Note Date/Time of Note DATE: 07/24/16 TIME: 10:56 Assessment/Plan Lines/Catheters IV Catheter Type (from Nrs): Peripheral IV More in Place (from Nrs): No Assessment/Plan Chief Complaint/Hosp Course 1. s/p colostomy reversal 07/20/16. Paralytic ileus. Improving -OOB/Ambulate -Chew gum -Advance diet as tolerated -D/C planning 2. BMI 29 -Encourage eventual nutritional optimization -Encourage exercise 3. Hypertension -Diet and medication optimization -Eventual weight optimization encouraged 4. Hyperlipidemia -Diet and medication optimization -Eventual weight optimization encouraged 5. Diabetes mellitus -Diet and medication optimization -Eventual weight optimization encouraged 6. Hyperkalemia -Correct per primary please 7. Hypoglycemia resolved 8. Thrombocytopenia -monitor Thank you, Problems: Subjective 24 Hr Interval Summary Flatus & BM. No nausea vomiting. Minimal pain. No chest pain. No shortness of breath. No visual neurologic changes. No dysuria. No cough. Ambulatory. Exam/Review of Systems Vital Signs Vitals Vital Signs Date Time Temp Pulse Resp B/P Pulse Ox O2 Delivery O2 Flow Rate FiO2 07/24/16 08:35 97.8 67 18 120/62 92 07/22/16 19:47 Room Air 07/20/16 22:45 2.0 Intake and Output 07/23/16 07/23/16 07/24/16 14:59 22:59 06:59 Intake Total 1140 ml 1500 ml Output Total 1000 ml Balance 140 ml 1500 ml Exam Free Text/Dictation Constitutional: alert, obese, oriented, No distress Psych: nl mood/affect, No anxiety Head: atraumatic, normocephalic Eyes: EOMI, PERRL, nl conjunctiva, No icteric ENMT: mucosa pink and moist, nl external ears & nose, nl lips & teeth Neck: non-tender, supple, No jvd Respiratory: normal air movement, No congested cough, No labored breathing Cardiovascular: regular rate and rhythm, No edema Gastrointestinal: other (Colostomy site with improved nonblanching erythema. Kareen and drain intact. Minimal discharge. No odor.), soft, tender (Minimal) , No rebound or guarding Musculoskeletal: nl extremities to inspection, nl gait and stance, No joint tenderness Extremities: normal pulses, No calf tenderness, No cyanosis Neurological: nl mental status, nl speech, nl strength Skin: nl turgor, rash or lesions, No diaphoresis (Abdominal colostomy site skin changes as above) Lymph: nl lymph nodes Results Result Diagram: 07/24/16 0415 07/24/16 0415 DEWAYNE TOBAR MD Jul 24, 2016 10:56
[2016-07-24] MEDS ORDERED: HYDR-3498 PO (17:53)
--- NOTE | 2016-07-25 18:10 | RADRPT ---
Vent Rate: 64 bpm RR Interval: 0 msec FL Interval: 164 msec QRS Duration: 86 msec QT Interval: 410 msec QTC Interval: 422 msec P-R-T [place]: 44 - 42 - 62 degrees Normal sinus rhythm Normal ECG Electronically Signed By: Hernando Vizcaino [id number]
== END 2016-07-24 19:35 | disposition home or self-care (01) | DRG 330 ==
LOC: REC 11:53 → EDSTATUS 14:00 → MS1 20:45
PROVIDERS: ADMIT Surgery; ATTEND Surgery
PROC: 0DU Gastrointestinal System, Supplement (ICD-10-PCS; 2016-07-20)
PROC: 0DBM4ZZ Excision of Descending Colon, Percutaneous Endoscopic Approach (ICD-10-PCS; principal; 2016-07-20 17:30)
DX: Z43.3 Encounter for attention to colostomy (principal); K56.0 Paralytic ileus; E11.649 Type 2 diabetes mellitus with hypoglycemia without coma; D69.6 Thrombocytopenia, unspecified; E87.5 Hyperkalemia; E78.5 Hyperlipidemia, unspecified; I10 Essential (primary) hypertension; Z79.84 Long term (current) use of oral hypoglycemic drugs; Z90.710 Acquired absence of both cervix and uterus
CPT/HCPCS: 80048; 80053; 80061; 81001; 81003; 82947; 82962; 85025; 85610; 85730; 87086; 88305; 93005; C9113; J0744; J1100; J1170; J1650; J1815; J2001; J2310; J2405; J2710; J3010; J3480; Q4166

== ENCOUNTER 2017-03-26 09:27 | Day surgery (SDC) | payer BC ==
[~2017-03-26] VITALS: Ht 162.6 cm; Wt 99.8 kg
[~2017-03-26 09:27] MED LIST changes: -EPHEDrine SULFATE 50 MG/5 ML SYG ONE; +HYDR-3498 PO; -NALOXONE (0.4 MG/ML) INJ ONE; -ROCURONIUM 50 MG INJ ONE
[2017-03-26 11:26] VITALS: Ht 162.6 cm; Wt 99.8 kg
[2017-03-26 11:53] VITALS: BP 133/74; PULSE 79; RESP 17
[2017-03-26] MEDS ORDERED: LIDOCAINE 2% (SDV) 5 ML INJ ONE (12:09)
[2017-03-26] MEDS ORDERED: PROPOFOL 20 ML ONE (12:09)
--- NOTE | 2017-03-26 12:10 | OPPN ---
Date/Time of Note Date/Time of Note DATE: 03/26/17 TIME: 12:09 Operative Report Preoperative Diagnosis Positive occult blood in stool Postoperative Diagnosis Inflammation at the area of anastomosis and biopsies were taken Internal hemorrhoids Operation/Procedure Performed Colonoscopy and biopsy Surgeon see signature line financial services assistant None Anesthesia: MAC Estimated blood loss: none Transfusion Required none Specimen Biopsy anastomotic site Grafts/Implants none Complications none NICK RUIZ MD Mar 26, 2017 12:10
[2017-03-26 12:38] VITALS: BP 122/75; PULSE 78; RESP 17
--- NOTE | 2017-03-26 13:52 | GILP ---
DATE OF PROCEDURE: NAME OF PROCEDURES: Colonoscopy and biopsy. SURGEON: Nick Bear MD PREOPERATIVE DIAGNOSIS: Positive occult blood in stool. POSTOPERATIVE DIAGNOSES 1. Colonoscopy all the way to the cecum. 2. Some inflammation around the anastomotic site and biopsies were taken for histopathology. 3. Internal hemorrhoids. INDICATION FOR THE PROCEDURE: Ms. Sherrie Prado is a 56-year-old female patient who was noted to have positive occult blood in stool. Patient was scheduled for colonoscopy for further evaluation. The procedure and possible complications are well explained to the patient. She understood and cons ented to the procedure. DESCRIPTION OF PROCEDURE: Under the influence of anesthesia, the colonoscope was carefully introduc ed in the rectum and under direct vision, it was advanced all the way to the cecum. FINDINGS: The patient was noted to have some inflammation around the anastomotic area and biopsies were taken for histopathology. She was noted to have internal hemorrhoids. No colon neoplasm was i dentified. She tolerated the procedure very well and there was no complication from the procedure. At the end of the procedures, she was awake with stable vital signs and she was discharged home to the care of her family. IMPRESSION: Please see postoperative diagnoses. PLAN: 1. Await histopathology report. 2. Next screening colonoscopy in 10 years. Dictated By: NICK READ/ТАТЬЯНА Conf#: [id number] DID#: [id number]
== END 2017-03-26 16:49 | disposition home or self-care (01) ==
LOC: GIL 09:27
PROVIDERS: ATTEND Internal Medicine Gastroenterology
DX: K92.1 Melena (principal); K64.8 Other hemorrhoids; E11.9 Type 2 diabetes mellitus without complications; I10 Essential (primary) hypertension
CPT/HCPCS: 82962; 88305